=== PATIENT | female | born 1990 | race American Indian/Alaskan Native ===

== ENCOUNTER 2020-03-12 00:28 | Outpatient (CLI) | payer MEDICAID ==
[2020-03-12 00:47] VITALS: BP 125/87
== END 2020-03-12 02:10 | disposition home or self-care (01) ==
LOC: TRG 00:28 → APU 00:45 → TRG 02:10
PROVIDERS: ATTEND Obstetrics & Gynecology
DX: O47.1 False labor at or after 37 completed weeks of gestation (principal); Z3A.40 40 weeks gestation of pregnancy
CPT/HCPCS: 59025